=== PATIENT | male | born 1955 | race Hispanic/Latino ===

== ENCOUNTER 2016-12-12 13:43 | Inpatient (IN) | payer OTHER ==
--- NOTE | 2016-12-12 14:19 | ED PDOC ---
HPI: Abdomen Time Seen by Provider: 12/12/16 13:55 Chief Complaint (Nursing): Abdominal Pain Chief Complaint (Provider): abd pain History Per: Patient Additional Complaint(s): 61-year-old male with a history of chronic abdominal pain presents to emergency department with worsening abdominal pain over the past couple of weeks. Patient states that his abdomen feels distended. He denies any nausea, vomiting, diarrhea or constipation. Patient states that he used to be under the care of a spray ii painter and was on narcotics for pain management. He was then switched to paper nor foreign for pain control but has been off of this medication for several weeks. Patient relocated to [place] today and was living in [place]. He does not have a primary doctor. Current abdominal pain as a 10 out of 10. Patient states he was seen in ER 3 weeks ago in [place] and had a CAT scan of his abdomen and pelvis which was read as negative. Patient is requesting pain medication at this time. He also states that because he is having such severe pain he is now feeling suicidal. Patient states he plans on staying with a friend while in [place]. Past Medical History Reviewed: Historical Data, Nursing Documentation, Vital Signs Vital Signs: Last Vital Signs Temp 97.1 F L 12/13/16 09:00 Pulse 74 12/13/16 11:36 Resp 18 12/13/16 09:00 BP 128/74 12/13/16 11:36 Pulse Ox 96 12/13/16 13:58 - Medical History PMH: Chronic Pain (abdominal) - Surgical History Surgical History: Appendectomy (In 1970 with subsequent peritonitis) - Family History Family History: States: No Known Family Hx - Living Arrangements Living Arrangements: With Family - Social History Current smoker - smoking cessation education provided: No Alcohol: Other (History of alcohol abuse, sober for 30 years) Drugs: Denies - Home Medications Home Medications: Ambulatory Orders Medication Instructions Recorded Docusate Sodium [Col-Rite] 1 tab PO TID 12/12/16 Ibuprofen [Motrin Tab] 1 tab PO Q12 PRN 12/12/16 Polyethylene Glycol 3350 17 gm PO TID PRN 12/12/16 [Gentlelax] Lisinopril [Zestril] 20 mg PO DAILY 12/13/16 amLODIPine [Norvasc] 10 mg PO DAILY 12/13/16 - Allergies Allergies/Adverse Reactions: Allergies Allergy/AdvReac Type Severity Reaction Status Date / Time No Known Allergies Allergy Verified 12/12/16 13:46 Review of Systems ROS Statement: Except As Marked, All Systems Reviewed And Found Negative Constitutional: Negative for: Fever, Chills Cardiovascular: Negative for: Chest Pain Respiratory: Negative for: Cough Gastrointestinal: Positive for: Abdominal Pain (Chronic). Negative for: Nausea , Vomiting, Diarrhea, Constipation Genitourinary Male: Negative for: Dysuria Physical Exam - Reviewed Nursing Documentation Reviewed: Yes Vital Signs Reviewed: Yes - Physical Exam Appears: Positive for: Well, Non-toxic, No Acute Distress Head Exam: Positive for: ATRAUMATIC Cardiovascular/Chest: Positive for: Regular Rate, Rhythm Respiratory: Positive for: Normal Breath Sounds Gastrointestinal/Abdominal: Positive for: Soft, Other (Soft abdomen with mild distention, no rebound, no guarding, mildly tender diffusely) Back: Negative for: L CVA Tenderness, R CVA Tenderness Neurologic/Psych: Positive for: Alert, Oriented - Laboratory Results Result Diagrams: 12/12/16 15:00 12/12/16 15:00 Urine dip results: Negative for: Leukocyte Esterase, Blood, Nitrate, Ketones, Glucose, Bilirubin, Protein - ECG O2 Sat by Pulse Oximetry: 96 Pulse Ox Interpretation: Normal Medical Decision Making Medical Decision Makin61 year old with acute on chronic abd pain and suicidal ideation Plan: CBC CMP Lipase UA UDS BAL 1:1 bedside observation Crisis eval IVF IV toradol CT abd and pelvis with IV contrast Patient was seen by crisis counselor, as per counselor and psychiatrist information systems project manager , Dr. Betts, patient does meet criteria for admission. Patient agrees with admission and signed himself in. Labs and urine are within normal limits, CT report is pending Disposition - Clinical Impression Clinical Impression: Suicidal ideation - Patient ED Disposition Is Patient to be Admitted: Transfer of Care - Disposition Disposition: Transfer of Care Disposition Time: 13:59 Condition: FAIR Patient Signed Over To: Myke Gant Handoff Comments: Case was signed out to ZAFAR Gant pending CT report and final disposition Results - Lab Results Lab Results: 12/12/16 12/12/16 15:00 14:40 WBC 9.3 RBC 4.96 Hgb 16.0 Hct 46.8 MCV 94.4 H MCH 32.2 H MCHC 34.1 RDW 13.1 Plt Count 285 MPV 7.4 Neut % (Auto) 80.4 H Lymph % (Auto) 11.5 L Hill % (Auto) 6.6 Eos % (Auto) 0.9 Baso % (Auto) 0.6 Neut # 7.5 H Lymph # 1.1 Hill # 0.6 Eos # 0.1 Baso # 0.1 Sodium 143 Potassium 4.3 Chloride 106 Carbon Dioxide 22 Anion Gap 19 BUN 23 H Creatinine 0.6 L Est GFR ( Amer) > 60 Est GFR (Non-Af Amer) > 60 Random Glucose 95 Calcium 9.9 Total Bilirubin 0.7 AST 26 ALT 43 Alkaline Phosphatase 74 Total Protein 7.8 Albumin 4.3 Globulin 3.5 Albumin/Globulin Ratio 1.2 Lipase 111 Urine Color Yellow Urine Clarity Clear Urine pH 6.0 Ur Specific [place] 1.018 Urine Protein Negative Urine Glucose (UA) Neg Urine Ketones Negative Urine Blood Negative Urine Nitrate Negative Urine Bilirubin Negative Urine Urobilinogen 0.2-1.0 Ur Leukocyte Esterase Neg Urine RBC (Auto) 1 Urine Microscopic WBC 1 Urine Opiates Screen Negative Urine Methadone Screen Negative Ur Barbiturates Screen Negative Ur Phencyclidine Scrn Negative Ur Amphetamines Screen Negative U Benzodiazepines Scrn Negative U Oth Cocaine Metabols Negative U Cannabinoids Screen Negative Alcohol, Quantitative < 10
[2016-12-12] MEDS ORDERED: Sodium Chloride 0.9% 1,000 ML IV STA (14:23)
[2016-12-12 14:53] LABS: RBC URINE 1 /hpf (0-3); URINE BILIRUBIN NEGATIVE (NEGATIVE); URINE BLOOD NEGATIVE (NEGATIVE); URINE COLOR YELLOW (YELLOW); URINE GLUCOSE (UA) NEG (Normal); URINE KETONE NEGATIVE (NEGATIVE); URINE LEUKOCYTE ESTERASE NEG Leu/uL (Negative); URINE PROTEIN NEGATIVE (NEGATIVE); URINE UROBILINOGEN 0.2-1.0 mg/dL (0.2-1.0); WBC URINE 1 /hpf (0-5)
[2016-12-12 15:30] LABS: BASO # 0.1 K/uL (0.0-0.2); BASO % 0.6 % (0.0-2.0); EOS # 0.1 K/uL (0.0-0.7); EOS % 0.9 % (0.0-4.0); HEMATOCRIT 46.8 % (35.0-51.0); LYMPH # 1.1 K/uL (1.0-4.3); LYMPH % 11.5 % (20.0-40.0); MEAN CELL VOLUME 94.4 fl (80.0-94.0); MEAN CORPUSCULAR HEMOGLOBIN 32.2 pg (27.0-31.0); MEAN CORPUSCULAR HGB CONC 34.1 g/dL (33.0-37.0); MEAN PLATELET VOLUME 7.4 fl (7.2-11.7); MONO # 0.6 K/uL (0.0-0.8); MONO % 6.6 % (0.0-10.0); NEUT # 7.5 K/uL (1.8-7.0); NEUT % 80.4 % (50.0-75.0); NRBC % 0.2 % (0.0-0.0); RED CELL DISTRIBUTION WIDTH 13.1 % (11.5-14.5); WHITE BLOOD COUNT 9.3 K/uL (4.8-10.8)
[2016-12-12 15:39] LABS: ALB/GLOB RATIO 1.2 (1.0-2.1); ALCOHOL SERUM < 10 mg/dl (0-10); ALKALINE PHOSPHATASE 74 U/L (38-126); ALT/SGPT 43 U/L (21-72); AST/SGOT 26 U/L (17-59); BILIRUBIN,TOTAL 0.7 mg/dl (0.2-1.3); BLOOD UREA NITROGEN 23 mg/dl (9-20); CALCIUM 9.9 mg/dL (8.4-10.2); CARBON DIOXIDE 22 mmol/L (22-30); CHLORIDE 106 mmol/L (98-107); GFR AFRICAN-AMERICAN > 60; GLUCOSE,RANDOM 95 mg/dL (75-110); LIPASE 111 U/L (23-300); POTASSIUM 4.3 MMOL/L (3.6-5.0); SODIUM 143 mmol/l (132-148); TOTAL PROTEIN 7.8 G/DL (6.3-8.2)
[2016-12-12] MEDS ORDERED: Iohexol 300 100 ML IJ ONE (18:29)
[2016-12-12] MEDS ORDERED: Sodium Chloride 0.9% 50 ML IV ONE (18:29)
--- NOTE | 2016-12-12 20:23 | CT ---
EXAM: CT Abdomen and Pelvis With Intravenous Contrast CLINICAL HISTORY: 61 years old, male; Pain; Abdominal pain; Generalized; Additional info: Diffuse abd pain TECHNIQUE: Axial computed tomography images of the abdomen and pelvis with intravenous contrast. This CT exam was performed using one or more of the following dose reduction techniques: automated exposure control, adjustment of the mA and/or kV according to patient size, and/or use of iterative reconstruction technique. Coronal and sagittal reformatted images were created and reviewed. CONTRAST: 100 mL of [id number] administered intravenously. EXAM DATE/TIME: 12/12/2016 2:25 PM COMPARISON: No relevant prior studies available. FINDINGS: LOWER THORAX: No infiltrate seen in the lung bases. ABDOMEN: LIVER: Fatty infiltration of the liver. GALLBLADDER AND BILE DUCTS: No CT evidence of acute cholecystitis. No evidence of significant biliary ductal dilatation. PANCREAS: No CT evidence of acute pancreatitis. SPLEEN: No acute abnormality of the spleen identified. ADRENALS: No acute abnormality of the adrenal glands identified. KIDNEYS AND URETERS: Low density lesion in the right kidney, measuring 6 cm, most likely a cyst. Bilateral perinephric stranding, a nonspecific finding. No acute abnormality of the kidneys identified. STOMACH AND BOWEL: Colonic diverticulosis, with no evidence of acute diverticulitis. No evidence of small bowel obstruction. No acute abnormality of the colon identified. No acute abnormality of the stomach or duodenum identified. APPENDIX: Normal appendix is not seen, however, there are no significant inflammatory changes visualized in the expected location of the appendix to suggest appendicitis. Recommend clinical correlation. PELVIS: BLADDER: No acute abnormality of the bladder identified. REPRODUCTIVE: Prostate gland is enlarged. ABDOMEN and PELVIS: INTRAPERITONEAL SPACE: No evidence of free intraperitoneal air or fluid. BONES/JOINTS: Bony structures appear demineralized. SOFT TISSUES: Small umbilical hernia, containing only fat. Postsurgical changes involving the Left anterior pelvic wall, which are most likely related to previous hernia repair. No evidence of abdominal wall hernia containing bowel. VASCULATURE: No evidence of abdominal aortic aneurysm. No evidence of periaortic hemorrhage. LYMPH NODES: No evidence of diffuse lymphadenopathy. IMPRESSION: - No evidence of significant acute process. No definite cause for pain identified. - See above for remaining findings.
--- NOTE | 2016-12-12 21:54 | ED PDOC ---
- Laboratory Results Result Diagrams: 12/12/16 15:00 12/12/16 15:00 - ECG O2 Sat by Pulse Oximetry: 97 - Progress ED Course And Treament: CT ABD/PELVIS: IMPRESSION: - No evidence of significant acute process. No definite cause for pain identified. - See above for remaining findings. Thank you for allowing us to participate in the care of your patient. Dictated and Authenticated by: Rosemary Cortez MD Bentyl 20 mg x 1 dose. medically cleared for psychiatric evaluation. Disposition - Clinical Impression Clinical Impression: Suicidal ideation - POA Present On Arrival: None - Disposition Disposition: Admitted as In-Patient Disposition Time: 21:53 Condition: FAIR
[2016-12-12] MEDS ORDERED: Alum-Mag Hydrox-Simethicone Susp (30 mL) PO PRN (22:55)
[2016-12-12] MEDS ORDERED: Magnesium Hydroxide Susp 30 ml UD PO PRN (22:55)
[2016-12-12] MEDS ORDERED: DiphenhydrAMINE 50 mg/ml Inj IM PRN (22:55)
[2016-12-13 00:29] VITALS: BMI 28.2
[2016-12-13 11:48] LABS: T4 7.35 ug/dl (5.5-11.0)
[2016-12-13 12:01] LABS: THYROID STIMULATING HORMONE 1.8 mIU/ML (0.46-4.68)
--- NOTE | 2016-12-13 14:25 | PCM.PSYCH ---
Initial Psychiatric Evaluation - Initial Psychiatric Evaluation Type of Admission: Voluntary Legal Status: Capacity Chief Complaint (in patient's own words): i tried to kill myself Patient's Reaction to Hospitalization: cooperative History of Present Illness and Precipitating Events: 61 yo male who recently relocated from [place] but is a [place]. he states he has chronic pain and it is so bad that he feels suicidal. he states he was on the way to the store to buy sleeping pills to add to the "stash of bp meds and other stuff i had" to take his own life. he than stated the pain was too much and he could not make it to the store so he called the police. he did not express his suicidal thoughts to the police about his suicidal thoughts. he was medically cleared in the ER and the abdomnial ct was wnl. he states he has seen pain management in the past. he denies any previous suicide attempts and states "if i tried it before i would be already" he is sitting comfortably in team and is well groomed. he is naming specific medications and aware of their mechanism of action. he is focused on his abdomnial pain. he does not endorse any symptoms of abad or depression or psychosis outside of his suicidal thoughts. he describes the pain as cramping, shock like and causing him anxiety and distress. he states several medications have not been helpful. mentions he was on klonopin in the past Current Medications: Active Medications Generic Name Dose Route Start Last Admin Trade Name Freq PRN Reason Stop Dose Admin Acetaminophen 650 mg 12/12/16 22:55 Tylenol 325mg Tab PO Q4 PRN T>101;headache;pain 1-7 Al Hydrox/Mg Hydrox/Simethicone 30 ml 12/12/16 22:55 Maalox Plus 30 Ml PO Q4 PRN Dyspepsia Amlodipine Besylate 10 mg 12/13/16 10:45 12/13/16 11:36 Norvasc PO 10 mg DAILY ANNY Administration Diphenhydramine HCl 50 mg 12/12/16 22:55 Benadryl PO Q6 PRN Extrapyramidal Symptoms Diphenhydramine HCl 50 mg 12/12/16 22:55 Benadryl IM Q6 PRN Extrapyramidal S/S Unable PO Diphenhydramine HCl 50 mg 12/12/16 23:06 Benadryl PO HS PRN Sleep Docusate Sodium 100 mg 12/13/16 13:00 12/13/16 13:52 Colace PO 100 mg TID ANNY Administration Escitalopram Oxalate 5 mg 12/13/16 11:30 12/13/16 11:38 Lexapro PO 5 mg DAILY ANNY Administration Haloperidol 5 mg 12/12/16 22:55 Haldol PO Q4 PRN Agitation Haloperidol Lactate 5 mg 12/12/16 22:55 Haldol IM Q4 PRN Agitation, Unable to Take PO Ibuprofen 1 mg 12/13/16 10:05 Motrin Tab PO Q12 PRN Pain, moderate (4-7) Lisinopril 20 mg 12/13/16 10:45 Zestril PO DAILY ANNY Lorazepam 2 mg 12/12/16 22:55 Ativan IM Q4 PRN Anxiety/Agitation,Unable PO Magnesium Hydroxide 30 ml 12/12/16 22:55 Milk Of Magnesia PO HS PRN Constipation Trazodone HCl 200 mg 12/12/16 23:15 12/12/16 23:30 Desyrel PO 200 mg HS ANNY Administration Past Psychiatric History - Past Psychiatric History Previous Treatment History: None Prior Professional Help: states he was seen by psych when he was an alcoholic History of Abuse: unknown History of ETOH/Drug Use: states he has been a recovered alcoholic for 20 years History of Family Illness: unknown Pertinent Medical Hx (Current Medical&Sleep Prob, Allergies): Allergies Allergy/AdvReac Type Severity Reaction Status Date / Time No Known Allergies Allergy Verified 12/12/16 13:46 Docusate Sodium [Col-Rite] 1 tab PO TID 12/12/16 Ibuprofen [Motrin Tab] 1 tab PO Q12 PRN 12/12/16 Polyethylene Glycol 3350 [Gentlelax] 17 gm PO TID PRN 12/12/16 Lisinopril [Zestril] 20 mg PO DAILY 12/13/16 amLODIPine [Norvasc] 10 mg PO DAILY 12/13/16 Review of Systems - Psychiatric Psychiatric: As Per HPI Mental Status Examination - Personal Presentation Personal Presentation: Looks stated age - Affect Affect: Broad - Motor Activity Motor Activity: Calm - Reliability in Providing Information Reliability in Providing Information: Good - Speech Speech: Organized - Mood Mood: Neutral - Formal Thought Process Formal Thought Process: No Impairment - Obsessions/Compulsions Obsessions: No Compulsions: No - Cognitive Functions Orientation: Person, Place, Situation, Time Sensorium: Alert Abstract Thinking: [place] Estimate of Intelligence: Average Judgement: Intact, as evidence by: Insight regarding need for hospitalization Memory: Recent intact, as evidence by: Ability to recall events of the day, Remote intact, as evidenced by: Abilit to recall sig. life events - Risk Risk: Suicidal, Diminished functioning - Strength & Assets Inventory Strength & Assets Inventory: Intelligence - Limitations Limitations: Other (lacks supports) DSM 5 DX - DSM 5 DSM 5 Diagnosis: depression unspecified alcohol dependence in sustained remission anxiety unspecified - Recommended/Plan of Treatment Treatment Recommendations and Plan of Treatment: admit to [facility] for safety and observation gather collateral information provide supportive therapy adjust medications- start lexapro for depression/anxiety have consulted pain management- appreciate their input. discussed case with attending. will consult gi for pt's complaints of chronic paini Projected ELOS: 3-5 days Prognosis: fair
--- NOTE | 2016-12-13 20:01 | CP.PCM.CON ---
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 Medicine consult called as per protocol. History obtained from patient. As per patient he has been suffering from depression with anxiety and panic disorder for many years, denies any prior psych admissions, suicidal attempts and currently has not been on any psych meds for more than 6 months. As per patient he just moved , 2 days ago from [place]. He states that has been suffering of chronic abdominal pain for more than 1 year, has been evaluated in other facility but no diagnosis was established. he has been on multiple medications, antispasmodics, TCA, pain medications, stool softener with minimal improvement. He states that he was given Buprenorphine for pain control by a pain specialist with good results but has not been able to follow up with pain specialist and has not been on any pills for more than 6 months. Yesterday while he was in [facility] decided to call EMS complaining of abdominal pain to bring him to ER. Work up in ER , including CT scan of abdomen showed no acute pathology.In ER patient complained of feeling depressed and having suicidal thoughts.Crisis eval called and he is admitted in psych unit. At present his abdominal pain is better , controlled, had BM this AM, passing flatus, tolerating PO intake and physical exam is normal. His main pre occupation seems to be his abdominal symptoms , like distention , cramps , that has been ongoing for more than 1 year.He is convinced that something is wrong with his abdomen. Denies any fever , chills, weight loss, melena,dysuria. Allergies ;NKDA PMH ; depression with anxiety , history of alcoholism ( quit 25 years ago 0, Chronic abdominal pain syndrome, HTN Medications; Lisinopril , Norvasc . has tried many different medications for depression , anxiety and chronic abdominal pain but has not been on any treatments for the last 6 months Surgery ; appendectomy, laparascoppic abdominal hernia repair family history ; None Social history ; Used to live in [place] for the past 1 year and moved down to [place] 2 days ago, disabled , single, states that will live with his girlfriend in [place] once discharged , stopped smoking 10 years ago, used to have dependence to codeine and ETOH in the past and has been on detox programs Review of Systems - Review of Systems All systems: reviewed and no additional remarkable complaints except Past Patient History - Infectious Disease Hx of Infectious Diseases: None - Tetanus Immunizations Tetanus Immunization: Unknown - Past Medical History & Family History Past Medical History?: Yes Past Family History: Reviewed and not pertinent - Past Social History Smoking Status: Former Smoker Chewing Tobacco Use: No Cigar Use: No Alcohol: Other (History of alcohol abuse, sober for 30 years) Drugs: Denies Home Situation {Lives}: Friends Domestic Violence: Negative - CARDIAC Hx Hypertension: Yes - PULMONARY Hx Respiratory Disorders: No - NEUROLOGICAL Hx Neurological Disorder: No - HEENT Other/Comment: glasses - RENAL Hx Chronic Kidney Disease: No - ENDOCRINE/METABOLIC Hx Endocrine Disorders: No - HEMATOLOGICAL/ONCOLOGICAL Hx Blood Disorders: No - INTEGUMENTARY Hx Dermatological Problems: No - MUSCULOSKELETAL/RHEUMATOLOGICAL Hx Musculoskeletal Disorders: No - GASTROINTESTINAL Hx Colitis: Yes - GENITOURINARY/GYNECOLOGICAL Hx Genitourinary Disorders: No - PSYCHIATRIC Hx Depression: Yes Hx Substance Use: No - SURGICAL HISTORY Hx Appendectomy: Yes (In 1970 with subsequent peritonitis) - ANESTHESIA Hx Anesthesia: Yes Hx Anesthesia Reactions: No Hx Malignant Hyperthermia: No Has any member of the family had a problem w/ anesthesia?: No Meds Allergies/Adverse Reactions: Allergies Allergy/AdvReac Type Severity Reaction Status Date / Time No Known Allergies Allergy Verified 12/12/16 13:46 - Medications Medications: Current Medications Acetaminophen (Tylenol 325mg Tab) 650 mg PO Q4 PRN PRN Reason: T>101;headache;pain 1-7 Al Hydrox/Mg Hydrox/Simethicone (Maalox Plus 30 Ml) 30 ml PO Q4 PRN PRN Reason: Dyspepsia Amlodipine Besylate (Norvasc) 10 mg PO DAILY [facility] Last Admin: 12/13/16 11:36 Dose: 10 mg Diphenhydramine HCl (Benadryl) 50 mg PO Q6 PRN PRN Reason: Extrapyramidal Symptoms Diphenhydramine HCl (Benadryl) 50 mg IM Q6 PRN PRN Reason: Extrapyramidal S/S Unable PO Diphenhydramine HCl (Benadryl) 50 mg PO HS PRN PRN Reason: Sleep Docusate Sodium (Colace) 100 mg PO TID [facility] Last Admin: 12/13/16 17:44 Dose: 100 mg Escitalopram Oxalate (Lexapro) 5 mg PO DAILY [facility] Last Admin: 12/13/16 11:38 Dose: 5 mg Haloperidol (Haldol) 5 mg PO Q4 PRN PRN Reason: Agitation Haloperidol Lactate (Haldol) 5 mg IM Q4 PRN PRN Reason: Agitation, Unable to Take PO Ibuprofen (Motrin Tab) 600 mg PO Q12 PRN PRN Reason: Pain, moderate (4-7) Ketorolac Tromethamine (Toradol) 10 mg PO Q6 PRN PRN Reason: Pain, moderate to severe(4-10) Lisinopril (Zestril) 20 mg PO DAILY [facility] Lorazepam (Ativan) 2 mg IM Q4 PRN PRN Reason: Anxiety/Agitation,Unable PO Magnesium Hydroxide (Milk Of Magnesia) 30 ml PO HS PRN PRN Reason: Constipation Trazodone HCl (Desyrel) 200 mg PO HS [facility] Last Admin: 12/12/16 23:30 Dose: 200 mg Physical Exam - Constitutional Appears: Non-toxic, No Acute Distress - Head Exam Head Exam: ATRAUMATIC, NORMAL INSPECTION, NORMOCEPHALIC - Eye Exam Eye Exam: EOMI, Normal appearance, PERRL Pupil Exam: NORMAL ACCOMODATION - ENT Exam ENT Exam: Mucous Membranes Moist, Normal Exam - Neck Exam Neck exam: Positive for: Full Rom, Normal Inspection - Respiratory Exam Respiratory Exam: Clear to Auscultation Bilateral, NORMAL BREATHING PATTERN. absent: Rales, Rhonchi, Wheezes - Cardiovascular Exam Cardiovascular Exam: REGULAR RHYTHM, RRR, +S1, +S2. absent: JVD - GI/Abdominal Exam GI & Abdominal Exam: Normal Bowel Sounds, Soft. absent: Distended, Guarding, Rebound, Tenderness - Rectal Exam Rectal Exam: Deferred - Extremities Exam Extremities exam: Positive for: normal capillary refill, normal inspection, pedal pulses present. Negative for: calf tenderness, pedal edema - Back Exam Back exam: NORMAL INSPECTION - Neurological Exam Neurological exam: Alert, CN II-XII Intact, Oriented x3, Reflexes Normal - Psychiatric Exam Psychiatric exam: Normal Affect - Skin Skin Exam: Dry, Intact, Normal Color, Warm Results - Vital Signs Recent Vital Signs: Last Vital Signs Temp 98.1 F 12/13/16 17:00 Pulse 83 12/13/16 17:00 Resp 18 12/13/16 17:00 BP 130/79 12/13/16 17:00 Pulse Ox 96 12/13/16 14:00 - Labs Result Diagrams: 12/12/16 15:00 12/12/16 15:00 Labs: Laboratory Results - last 24 hr 12/13/16 10:10 Hemoglobin A1c 5.3 Triglycerides 186 H Cholesterol 208 H LDL Cholesterol Direct 113 HDL Cholesterol 46 Thyroxine (T4) 7.35 Total T3 1.39 L TSH 3rd Generation 1.80 - Imaging and Cardiology CT scan - abdomen Additional comment: no acute pathology Assessment & Plan (1) Suicidal ideation Status: Acute Priority: High Comment: Management as per psych. check TSH, RPR (2) Abdominal pain Status: Chronic Priority: High Comment: unclear etiology. Ct abdomen and pelvis showed no acute pathology. GI consult appreciated and case discussed with Dr. Stoner. continue Colace. Start Elavil , Bentyl. If abdominal pain returns with perform KUB (3) Hypertension Status: Chronic Priority: Medium Comment: resume Lisinopril 20 mg po WQD and Norvasc 10 mg po QD (4) Dyslipidemia Status: Acute Comment: low fat diet
--- NOTE | 2016-12-14 12:13 | PCM.PYCHPN ---
Psychiatric Progress Note - Psychiatric Progress Note Patient seen today, length of contact: pt seen and evaluated Patient Chief Complaint: pt has remained withdrawn and depressed.pt denies suicidal ideation but still c/ o stomach pain Problems Identified/Issues Discussed: admitted for significantly depressed mood and suicidal gesture Medical Problems: h/o chronic pain ,c/o stomach pain DSM 5 Symptoms Update: major depression Medication Change: Yes (will increase lexapro to 10 mg daily) Medical Record Reviewed: No Mental Status Examination - Cognitive Function Orientation: Person, Place, Situation, Time Memory: Intact Attention: Poor Fund of Knowledge: WNL - Mood Mood: Depressed, Neutral - Formal Thought Process Formal Thought Process: No Impairment - Suicidal Ideation Suicidal Ideation: No - Homicidal Ideation Homicidal Ideation: No Goal/Treatment Plan - Goal/Treatment Plan Progress Toward Problem(s) and Goals/Treatment Plan: will continue to titrate lexapro as needed to stabilize the pt and engage in therapy
--- NOTE | 2016-12-15 08:25 | CP.PCM.CON ---
History of Present Illness - History of Present Illness History of Present Illness: 61yM with hx of chronic abdominal pain, buprenorphine use, recently moved to [place]. He says his abdominal pain is intermittent and crampy, VAS 5-6/ 10. Pain is around his belly button and does not radiate. He denies inciting event, and denies specific aggravating factors. He says pain medication relieves his pain. He was admitted to [facility] for suicidal ideations. He denies constipation and diarrhea. As per primary team, patient has no recent opioid use in the last 3 months. Past Patient History - Infectious Disease Hx of Infectious Diseases: None - Tetanus Immunizations Tetanus Immunization: Unknown - Past Medical History & Family History Past Medical History?: Yes Past Family History: Reviewed and not pertinent - Past Social History Smoking Status: Former Smoker Chewing Tobacco Use: No Cigar Use: No Alcohol: Other (History of alcohol abuse, sober for 30 years) Drugs: Denies Home Situation {Lives}: Friends Domestic Violence: Negative - CARDIAC Hx Hypertension: Yes - PULMONARY Hx Respiratory Disorders: No - NEUROLOGICAL Hx Neurological Disorder: No - HEENT Other/Comment: glasses - RENAL Hx Chronic Kidney Disease: No - ENDOCRINE/METABOLIC Hx Endocrine Disorders: No - HEMATOLOGICAL/ONCOLOGICAL Hx Blood Disorders: No - INTEGUMENTARY Hx Dermatological Problems: No - MUSCULOSKELETAL/RHEUMATOLOGICAL Hx Musculoskeletal Disorders: No - GASTROINTESTINAL Hx Colitis: Yes - GENITOURINARY/GYNECOLOGICAL Hx Genitourinary Disorders: No - PSYCHIATRIC Hx Depression: Yes Hx Substance Use: No - SURGICAL HISTORY Hx Appendectomy: Yes (In 1970 with subsequent peritonitis) - ANESTHESIA Hx Anesthesia: Yes Hx Anesthesia Reactions: No Hx Malignant Hyperthermia: No Has any member of the family had a problem w/ anesthesia?: No Meds Allergies/Adverse Reactions: Allergies Allergy/AdvReac Type Severity Reaction Status Date / Time No Known Allergies Allergy Verified 12/12/16 13:46 - Medications Medications: Current Medications Acetaminophen (Tylenol 325mg Tab) 650 mg PO Q4 PRN PRN Reason: T>101;headache;pain 1-7 Al Hydrox/Mg Hydrox/Simethicone (Maalox Plus 30 Ml) 30 ml PO Q4 PRN PRN Reason: Dyspepsia Amitriptyline HCl (Elavil) 25 mg PO HS [facility] Last Admin: 12/14/16 21:18 Dose: 25 mg Amlodipine Besylate (Norvasc) 10 mg PO DAILY [facility] Last Admin: 12/14/16 08:59 Dose: 10 mg Dicyclomine HCl (Bentyl) 10 mg PO QID [facility] Last Admin: 12/14/16 21:19 Dose: Not Given Diphenhydramine HCl (Benadryl) 50 mg PO Q6 PRN PRN Reason: Extrapyramidal Symptoms Diphenhydramine HCl (Benadryl) 50 mg IM Q6 PRN PRN Reason: Extrapyramidal S/S Unable PO Diphenhydramine HCl (Benadryl) 50 mg PO HS PRN PRN Reason: Sleep Docusate Sodium (Colace) 100 mg PO TID [facility] Last Admin: 12/14/16 17:22 Dose: 100 mg Escitalopram Oxalate (Lexapro) 10 mg PO DAILY [facility] Haloperidol (Haldol) 5 mg PO Q4 PRN PRN Reason: Agitation Haloperidol Lactate (Haldol) 5 mg IM Q4 PRN PRN Reason: Agitation, Unable to Take PO Ibuprofen (Motrin Tab) 600 mg PO Q12 PRN PRN Reason: Pain, moderate (4-7) Ketorolac Tromethamine (Toradol) 10 mg PO Q6 PRN PRN Reason: Pain, moderate to severe(4-10) Last Admin: 12/14/16 17:24 Dose: 10 mg Lisinopril (Zestril) 20 mg PO DAILY [facility] Last Admin: 12/14/16 09:06 Dose: 20 mg Lorazepam (Ativan) 2 mg IM Q4 PRN PRN Reason: Anxiety/Agitation,Unable PO Magnesium Hydroxide (Milk Of Magnesia) 30 ml PO HS PRN PRN Reason: Constipation Trazodone HCl (Desyrel) 200 mg PO HS [facility] Last Admin: 12/14/16 21:19 Dose: 200 mg Physical Exam - Constitutional Appears: Non-toxic, No Acute Distress - GI/Abdominal Exam GI & Abdominal Exam: Soft Additional comments: nontender, no rebound - Neurological Exam Neurological exam: CN II-XII Intact, Normal Gait Additional comments: MAEW, sensation grossly intact in all 4 extremities Results - Vital Signs Recent Vital Signs: Last Vital Signs Temp 99.0 F 12/14/16 16:38 Pulse 81 12/14/16 16:38 Resp 18 12/14/16 16:38 BP 117/71 04/01/17 16:38 Pulse Ox 96 12/13/16 14:00 - Labs Result Diagrams: 12/12/16 15:00 12/12/16 15:00 Assessment & Plan - Assessment and Plan (Free Text) Assessment: 61yM with chronic abdominal pain Plan: 1. Plan as per GI. Imaging reviewed, no acute processes. 2. Agree with toradol, colace, and bentyl 3. Limit medications which could cause constipation 4. Care as per primary team
--- NOTE | 2016-12-15 13:46 | PCM.PYCHPN ---
Psychiatric Progress Note - Psychiatric Progress Note Patient seen today, length of contact: pt seen and evaluated Patient Chief Complaint: pt has remained withdrawn and depressed.pt denies suicidal ideation but still c/ o stomach pain Problems Identified/Issues Discussed: admitted for significantly depressed mood and suicidal gesture Medical Problems: h/o chronic pain ,c/o stomach pain DSM 5 Symptoms Update: major depression Medication Change: No Medical Record Reviewed: No Mental Status Examination - Cognitive Function Orientation: Person, Place, Situation, Time Memory: Intact Attention: Poor Concentration: Poor Fund of Knowledge: WNL - Mood Mood: Depressed, Neutral - Affect Affect: Broad - Formal Thought Process Formal Thought Process: No Impairment - Suicidal Ideation Suicidal Ideation: No - Homicidal Ideation Homicidal Ideation: No Goal/Treatment Plan - Goal/Treatment Plan Progress Toward Problem(s) and Goals/Treatment Plan: will continue to titrate lexapro as needed and increase to 10 mg daily to stabilize the pt and engage in therapy follow up with GI regarding abdominal pain
--- NOTE | 2016-12-15 21:04 | CP.PCM.CON ---
History of Present Illness - History of Present Illness History of Present Illness: 61 yo male ith h/o depression and anxiety c/o abdominal pain. Pain states the abdominal pain is chronic and in the past has not been responsive to treatment. He has had extensive testing in the past, given multiple GI meds, and nothing has really worked. He also states he just moved from [place] 2 days ago. Patient states he had a BM earlier and now feels better. Review of Systems - Constitutional Constitutional: absent: Chills - EENT Eyes: absent: Blurred Vision Ears: absent: Ear Discharge Nose/Mouth/Throat: absent: Epistaxis - Cardiovascular Cardiovascular: absent: Chest Pain - Respiratory Respiratory: absent: Cough - Gastrointestinal Gastrointestinal: As Per HPI Past Patient History - Infectious Disease Hx of Infectious Diseases: None - Tetanus Immunizations Tetanus Immunization: Unknown - Past Medical History & Family History Past Medical History?: Yes Past Family History: Reviewed and not pertinent - Past Social History Smoking Status: Former Smoker Chewing Tobacco Use: No Cigar Use: No Alcohol: Other (History of alcohol abuse, sober for 30 years) Drugs: Denies Home Situation {Lives}: Friends Domestic Violence: Negative - CARDIAC Hx Hypertension: Yes - PULMONARY Hx Respiratory Disorders: No - NEUROLOGICAL Hx Neurological Disorder: No - HEENT Other/Comment: glasses - RENAL Hx Chronic Kidney Disease: No - ENDOCRINE/METABOLIC Hx Endocrine Disorders: No - HEMATOLOGICAL/ONCOLOGICAL Hx Blood Disorders: No - INTEGUMENTARY Hx Dermatological Problems: No - MUSCULOSKELETAL/RHEUMATOLOGICAL Hx Musculoskeletal Disorders: No - GASTROINTESTINAL Hx Colitis: Yes - GENITOURINARY/GYNECOLOGICAL Hx Genitourinary Disorders: No - PSYCHIATRIC Hx Depression: Yes Hx Substance Use: No - SURGICAL HISTORY Hx Appendectomy: Yes (In 1970 with subsequent peritonitis) - ANESTHESIA Hx Anesthesia: Yes Hx Anesthesia Reactions: No Hx Malignant Hyperthermia: No Has any member of the family had a problem w/ anesthesia?: No Meds Allergies/Adverse Reactions: Allergies Allergy/AdvReac Type Severity Reaction Status Date / Time No Known Allergies Allergy Verified 12/12/16 13:46 - Medications Medications: Current Medications Acetaminophen (Tylenol 325mg Tab) 650 mg PO Q4 PRN PRN Reason: T>101;headache;pain 1-7 Al Hydrox/Mg Hydrox/Simethicone (Maalox Plus 30 Ml) 30 ml PO Q4 PRN PRN Reason: Dyspepsia Amlodipine Besylate (Norvasc) 10 mg PO DAILY [facility] Last Admin: 12/15/16 08:57 Dose: 10 mg Dicyclomine HCl (Bentyl) 10 mg PO QID [facility] Last Admin: 12/15/16 17:22 Dose: 10 mg Diphenhydramine HCl (Benadryl) 50 mg PO Q6 PRN PRN Reason: Extrapyramidal Symptoms Diphenhydramine HCl (Benadryl) 50 mg IM Q6 PRN PRN Reason: Extrapyramidal S/S Unable PO Diphenhydramine HCl (Benadryl) 50 mg PO HS PRN PRN Reason: Sleep Docusate Sodium (Colace) 100 mg PO TID [facility] Last Admin: 12/15/16 17:28 Dose: 100 mg Escitalopram Oxalate (Lexapro) 10 mg PO DAILY [facility] Last Admin: 12/15/16 08:55 Dose: 10 mg Haloperidol (Haldol) 5 mg PO Q4 PRN PRN Reason: Agitation Haloperidol Lactate (Haldol) 5 mg IM Q4 PRN PRN Reason: Agitation, Unable to Take PO Ibuprofen (Motrin Tab) 600 mg PO Q12 PRN PRN Reason: Pain, moderate (4-7) Ketorolac Tromethamine (Toradol) 10 mg PO Q6 PRN PRN Reason: Pain, moderate to severe(4-10) Last Admin: 12/15/16 16:11 Dose: 10 mg Lisinopril (Zestril) 20 mg PO DAILY [facility] Last Admin: 12/15/16 08:56 Dose: 20 mg Lorazepam (Ativan) 2 mg IM Q4 PRN PRN Reason: Anxiety/Agitation,Unable PO Magnesium Hydroxide (Milk Of Magnesia) 30 ml PO HS PRN PRN Reason: Constipation Trazodone HCl (Desyrel) 200 mg PO HS [facility] Last Admin: 12/14/16 21:19 Dose: 200 mg Physical Exam - Head Exam Head Exam: NORMAL INSPECTION - Eye Exam Pupil Exam: PERRL - ENT Exam ENT Exam: Mucous Membranes Moist - Neck Exam Neck exam: Positive for: Normal Inspection - Respiratory Exam Respiratory Exam: Clear to Auscultation Bilateral - Cardiovascular Exam Cardiovascular Exam: REGULAR RHYTHM - GI/Abdominal Exam GI & Abdominal Exam: Normal Bowel Sounds, Soft. absent: Tenderness Results - Vital Signs Recent Vital Signs: Last Vital Signs Temp 97.0 F L 12/15/16 17:00 Pulse 81 12/15/16 17:00 Resp 20 12/15/16 17:00 BP 143/87 12/15/16 17:00 Pulse Ox 96 12/13/16 14:00 - Labs Result Diagrams: 12/12/16 15:00 12/12/16 15:00 Assessment & Plan (1) Abdominal pain Assessment and Plan: Maintain regular bowel movements with stool softeners and mild laxatives. If abdomen gets tender or painful, obtain KUB> Status: Chronic Priority: High
--- NOTE | 2016-12-16 13:10 | PCM.PYCHPN ---
Psychiatric Progress Note - Psychiatric Progress Note Patient seen today, length of contact: discussed with team Patient Chief Complaint: i just feel down all the time Problems Identified/Issues Discussed: continues to focus on feeling suicidal because of gi pain. does not appear to be in pain when seen. social with peers. no se with meds endorsed. he is denying plan to kill self here. asking to see gi doctor again. Medication Change: No Medical Record Reviewed: No Mental Status Examination - Cognitive Function Orientation: Person, Place, Situation, Time Memory: Intact Attention: WNL Concentration: WNL Association: [facility] Fund of Knowledge: [facility] Decription of patient's judgement and insights: fair - Mood Mood: Depressed - Affect Affect: Constricted - Speech Speech: Appropriate - Formal Thought Process Formal Thought Process: No Impairment Psychotic Thoughts and Behaviors: denies a/v hallucinations - Suicidal Ideation Suicidal Ideation: Yes Plan: no plan/intent currently. - Homicidal Ideation Homicidal Ideation: No Goal/Treatment Plan - Goal/Treatment Plan Need for Continued Stay: Remain at risks for inpatient hospitalization Progress Toward Problem(s) and Goals/Treatment Plan: major depression recurrent severe will continue current treatment have discussed ect treatment with pt if his depression and suicidal thoughts remain refractory to medication gi and pain management following Estimated Date of D/C: 12/20/16
--- NOTE | 2016-12-17 11:07 | RAD ---
HISTORY: Abdominal pain COMPARISON: No prior. FINDINGS: BOWEL: There is moderate amount of stool in the colon. There is no evidence of bowel dilatation or obstruction. BONES: Normal. OTHER FINDINGS: There are multiple surgical clips in the pelvis. There are multiple phleboliths in the pelvis. IMPRESSION: Constipation. No evidence of bowel obstruction.
--- NOTE | 2016-12-17 11:44 | PCM.PYCHPN ---
Psychiatric Progress Note - Psychiatric Progress Note Patient seen today, length of contact: discussed with team Patient Chief Complaint: i am in pain Problems Identified/Issues Discussed: pt continues to focus on his abdominal pain. pt does not appear to be physically uncomfortable, he is eating meals. there is no radiological evidence of obstruction. continues to state he is depressed. Medication Change: No Medical Record Reviewed: No Consults ordered or reviewed: appreciate GI consult Mental Status Examination - Cognitive Function Orientation: Person, Place, Situation, Time Memory: Intact Attention: WNL Concentration: WNL Association: WNL Fund of Knowledge: [facility] Decription of patient's judgement and insights: fair - Mood Mood: Depressed - Affect Affect: Constricted - Speech Speech: Appropriate - Formal Thought Process Formal Thought Process: No Impairment - Suicidal Ideation Suicidal Ideation: Yes Plan: passive suicidal thoughts - Homicidal Ideation Homicidal Ideation: No Goal/Treatment Plan - Goal/Treatment Plan Need for Continued Stay: Remain at risks for inpatient hospitalization Progress Toward Problem(s) and Goals/Treatment Plan: major depression recurrent severe will continue current treatment continue current medications gi and pain management following Estimated Date of D/C: 12/20/16
[2016-12-17] MEDS ORDERED: POLYETHYLENE GLYCOL 3350 17 GM/Dose PACKET PO ONE (18:00)
--- NOTE | 2016-12-18 11:08 | PCM.PYCHPN ---
Psychiatric Progress Note - Psychiatric Progress Note Patient seen today, length of contact: discussed with team Patient Chief Complaint: i wake up suicidal Problems Identified/Issues Discussed: pt does not appear to be in physical discomfort. he sits in day area watching tv most of the day. he states he is suicidal, but not sure if he will act on it. pt asks for lithium to augment his lexapro. he seems less focused on his gi pain. Medication Change: No Medical Record Reviewed: No Mental Status Examination - Cognitive Function Orientation: Person, Place, Situation, Time Memory: Intact Attention: WNL Concentration: WNL Association: [facility] Fund of Knowledge: [facility] Decription of patient's judgement and insights: fair - Mood Mood: Depressed - Affect Affect: Constricted - Speech Speech: Appropriate - Formal Thought Process Formal Thought Process: No Impairment - Suicidal Ideation Suicidal Ideation: Yes Plan: denies plan - Homicidal Ideation Homicidal Ideation: No Goal/Treatment Plan - Goal/Treatment Plan Need for Continued Stay: Remain at risks for inpatient hospitalization Progress Toward Problem(s) and Goals/Treatment Plan: major depression recurrent severe will continue current treatment continue current medications and will add lithium. discussed r/b/se with pt. gi and pain management following Estimated Date of D/C: 12/27/16
--- NOTE | 2016-12-19 12:21 | PCM.PYCHPN ---
Psychiatric Progress Note - Psychiatric Progress Note Patient seen today, length of contact: discussed with team Patient Chief Complaint: the pain is bad Problems Identified/Issues Discussed: pt does not appear to be in distress, but is focused on his symptoms. he is stating pain meds don't work. Medical Problems: gi pain Medication Change: No Medical Record Reviewed: No Mental Status Examination - Cognitive Function Orientation: Person, Place, Situation, Time Memory: Intact Attention: WNL Concentration: WNL Association: WNL Fund of Knowledge: [facility] Decription of patient's judgement and insights: fair - Mood Mood: Depressed - Affect Affect: Constricted - Speech Speech: Appropriate - Formal Thought Process Formal Thought Process: No Impairment - Suicidal Ideation Suicidal Ideation: Yes Plan: feels safe only in hospital - Homicidal Ideation Homicidal Ideation: No Goal/Treatment Plan - Goal/Treatment Plan Need for Continued Stay: Remain at risks for inpatient hospitalization Progress Toward Problem(s) and Goals/Treatment Plan: major depression recurrent severe will continue current treatment dc lithium- risks seem to outway potential benefits gi and pain management following Estimated Date of D/C: 12/27/16
[2016-12-20] MEDS ORDERED: POLYETHYLENE GLYCOL 3350 17 GM/Dose PACKET PO PRN (09:00)
--- NOTE | 2016-12-20 13:47 | PCM.PYCHPN ---
Psychiatric Progress Note - Psychiatric Progress Note Patient seen today, length of contact: discussed with team Patient Chief Complaint: is it ok to not take my colace, should i talk to the gi doctor Problems Identified/Issues Discussed: pt focused on his gi meds. pt wants to discuss his long-term use of miralax. pt refusing colace today. he reports some improvement in mood/suicidal thoughts, but still expresses he feels depressed. Medical Problems: gi pain Medication Change: Yes (increase lexapro) Medical Record Reviewed: No Consults ordered or reviewed: appreciate input of medical consultants Mental Status Examination - Cognitive Function Orientation: Person, Place, Situation, Time Memory: Intact Attention: WNL Concentration: WNL Association: WNL Fund of Knowledge: [facility] Decription of patient's judgement and insights: fair - Mood Mood: Depressed - Affect Affect: Constricted - Speech Speech: Appropriate - Formal Thought Process Formal Thought Process: No Impairment - Suicidal Ideation Suicidal Ideation: Yes Plan: denies plan/intent - Homicidal Ideation Homicidal Ideation: No Goal/Treatment Plan - Goal/Treatment Plan Need for Continued Stay: Remain at risks for inpatient hospitalization Progress Toward Problem(s) and Goals/Treatment Plan: major depression recurrent severe will continue current treatment increase lexapo to 15mg gi and pain management following Estimated Date of D/C: 12/27/16
--- NOTE | 2016-12-21 13:44 | PCM.PYCHPN ---
Psychiatric Progress Note - Psychiatric Progress Note Patient seen today, length of contact: discussed with team Patient Chief Complaint: i am feeling more hopeful Problems Identified/Issues Discussed: pt feels less depressed. unsure if he should be hopeful. 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 Medical Problems: gi pain Medication Change: No ( ) Medical Record Reviewed: No Mental Status Examination - Cognitive Function Orientation: Person, Place, Situation, Time Memory: Intact Attention: WNL Concentration: WNL Association: WNL Fund of Knowledge: [facility] Decription of patient's judgement and insights: improving - Mood Mood: Depressed - Affect Affect: Constricted - Speech Speech: Appropriate - Formal Thought Process Formal Thought Process: No Impairment - Suicidal Ideation Suicidal Ideation: No Plan: denies today - Homicidal Ideation Homicidal Ideation: No Goal/Treatment Plan - Goal/Treatment Plan Need for Continued Stay: Remain at risks for inpatient hospitalization Progress Toward Problem(s) and Goals/Treatment Plan: major depression recurrent severe will continue current treatment continue lexapro 15mg gi and pain management following Estimated Date of D/C: 12/27/16
--- NOTE | 2016-12-22 14:28 | PCM.PYCHPN ---
Psychiatric Progress Note - Psychiatric Progress Note Patient seen today, length of contact: discussed with team Patient Chief Complaint: do you think i can stay longer? Problems Identified/Issues Discussed: pt feels less depressed and feels more hopeful. he is asking to increase dose of lexpapro despite feeling better. he wants to stay longer in the hospital. Medical Problems: gi pain Medication Change: No ( ) Medical Record Reviewed: No Mental Status Examination - Cognitive Function Orientation: Person, Place, Situation, Time Memory: Intact Attention: WNL Concentration: WNL Association: WNL Fund of Knowledge: [facility] Decription of patient's judgement and insights: fair - Mood Mood: Depressed - Affect Affect: Constricted - Speech Speech: Appropriate - Formal Thought Process Formal Thought Process: No Impairment - Suicidal Ideation Suicidal Ideation: No - Homicidal Ideation Homicidal Ideation: No Goal/Treatment Plan - Goal/Treatment Plan Need for Continued Stay: Remain at risks for inpatient hospitalization Progress Toward Problem(s) and Goals/Treatment Plan: major depression recurrent severe will continue current treatment continue lexapro 15mg gi and pain management following discharge tomorrow Estimated Date of D/C: 12/27/16
[2016-12-22 17:07] VITALS: O2SAT 99
[2016-12-23 09:05] VITALS: PULSE 96; RESP 20; TEMP 97.9
[2016-12-23 09:11] VITALS: BP 123/76
--- NOTE | 2016-12-23 14:06 | PCM.PYCHDC ---
Mental Status Examination - Mental Status Examination Orientation: Person, Place, Situation, Time Memory: Intact Mood: Depressed Affect: Broad Speech: Appropriate Attention: WNL Concentration: WNL Association: WNL Fund of Knowledge: WNL Formal Thought Process: No Impairment, Other (some somatic preoccupations) Description of patient's judgement and insight: fair Psychotic Thoughts and Behaviors: denies a/v hallucinations Suicidal Ideation: No Current Homicidal Ideation?: No Plan: pt is denying any suicidal or homicidal thoughts Discharge Summary - Discharge Note Reason for Hospitalization: pt with suicidal thoughts Psychiatric History (includes Medical, Family, Personal Hx): history of depression Laboratory Data: pt had workup ordered by dr. davis and hospitalist- unremarkable results Consultations:: List each consultation separately and include: 1. Reason for request. 2. Findings. 3. Follow-up Consultations: appreciate input of medical consultants Summary of Hospital Course include:: 1. Description of specific treatment plan utilized for patients during their course of treatmen. 2. Summarize the time- course for resolution of acute symptoms and/or regressed behaviors. 3. Describe issues identified and worked on during hospitalization. 4. Describe medication utilized. 5. Describe medical problems identified and treated. 6. Reassessment of suicide risk Summary of Hospital Course: 61 yo male who recently relocated from [place] but is a [place]. he states he has chronic pain and it is so bad that he feels suicidal. he states he was on the way to the store to buy sleeping pills to add to the "stash of bp meds and other stuff i had" to take his own life. he than stated the pain was too much and he could not make it to the store so he called the police. he did not express his suicidal thoughts to the police about his suicidal thoughts. he was medically cleared in the ER and the abdomnial ct was wnl. he states he has seen pain management in the past. he denies any previous suicide attempts and states "if i tried it before i would be already" he is sitting comfortably in team and is well groomed. he is naming specific medications and aware of their mechanism of action. he is focused on his abdomnial pain. he does not endorse any symptoms of abad or depression or psychosis outside of his suicidal thoughts. he describes the pain as cramping, shock like and causing him anxiety and distress. he states several medications have not been helpful. mentions he was on klonopin in the past pt was admitted to [facility] and oriented to the unit. pt placed on routine safety protocols. pt was started on medications to target his depression- lexapro and the dose was titrated up to 15mg daily. he noted and improvement in his energy level and mood with this medications. his suicidal thoughts subsided and he became less fixated on his pain and bowel habits. he was seen by hospitalist and gastroenterology. there were no acute medical findings. the patient was anxious about leaving the hospital. he was social with peers, visible in milieu and did not appear to be in much physical discomfort while on the unit. he was agreeable to referral to outpatient provider. he understood he would follow up with his gi specialist outside of the hospital. he was denying any suicidal or homicidal thoughts at the time of discharge. - Final Diagnosis (DSM 5) Condition upon Discharge: FAIR DSM 5: major depression recurrent moderate Disposition: HOME/ ROUTINE Follow-up Treatment Plan: follow up with aftercare appointments as directed take medications as prescribed do not use alcohol, tobacco or other illicit substances call 911 if any suicidal or homicidal thoughts Prescriptions/Medication Reconciliation: Docusate [Colace] 100 mg PO BID PRN #60 cap PRN Reason: Constipation traZODone [Desyrel] 200 mg PO HS #15 tab Escitalopram [Lexapro] 15 mg PO DAILY #45 tab Polyethylene Glycol 3350 [Miralax] 17 gm PO DAILY PRN #15 packet PRN Reason: Constipation Ibuprofen [Motrin Tab] 1 tab PO Q12 PRN #30 tab PRN Reason: Pain, Moderate (4-7) amLODIPine [Norvasc] 10 mg PO DAILY #15 tab Lisinopril [Zestril] 20 mg PO DAILY #15 tab - Smoking Cessation Smoking Cessation Medication prescribed: No Reason for not providing: declines - Antipsychotic Medications Pt discharged on 2 or more routine antipsychotic medications: No
== END 2016-12-23 15:30 | disposition home or self-care (01) | DRG 430 ==
LOC: H.ER 13:43 → H.EROBSV 14:23 → OBSVTOIN 19:02 → H.ERHOLD 19:04 → H.PSYCH 22:22
PROVIDERS: ADMIT Psychiatry & Neurology Psychiatry; ATTEND Psychiatry & Neurology Psychiatry
DX: F33.1 Major depressive disorder, recurrent, moderate (principal); I10 Essential (primary) hypertension; F10.21 Alcohol dependence, in remission; R10.9 Unspecified abdominal pain; F41.9 Anxiety disorder, unspecified; E78.5 Hyperlipidemia, unspecified; Z87.891 Personal history of nicotine dependence